=== PATIENT | male | born 1990 | race American Indian/Alaskan Native ===

== ENCOUNTER 2022-04-14 11:47 | Emergency (ER) | payer SELFPAY ==
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
[2022-04-14 13:01] VITALS: BP 143/73
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
--- NOTE | 2022-04-15 09:04 | Electrocardiograph Report ---
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
== END 2022-04-15 22:00 | disposition left against medical advice (07) ==
LOC: ED 11:47
DX: R07.9 Chest pain, unspecified (principal)
CPT/HCPCS: 93005; 99283